=== PATIENT | male | born 1975 | race American Indian/Alaskan Native ===

== ENCOUNTER 2020-03-21 07:37 | Emergency (ER) | payer BC ==
[2020-03-21 07:50] VITALS: BP 132/64
[2020-03-21] MEDS ORDERED: IBUPROFEN 600 MG TAB PO ONE (09:12)
--- NOTE | 2020-03-21 09:40 | Emergency Department Report ---
ED Back Pain/Injury HPI - General Chief Complaint: Back Pain/Injury Stated Complaint: ACCIDENT AT WORK Time Seen by Provider: 03/21/20 09:01 Source: patient Limitations: No Limitations - History of Present Illness Initial Comments: Patient is a 44-year-old male presents emergency room with complaints of low back pain that occurred just prior to arrival. Patient states that he had a slip and fall. He states he believes he fell over some cables. He states he has been having lower back pain. He denies any loss of consciousness, numbness, weakness, bowel or bladder incontinence, vomiting, vision changes. He does not report any chest pain, dizziness, shortness of breath prior to the fall, he states that he accidentally slipped and fell. No past medical history. No all ergies to medications. He is ambulatory and states that he drove himself to the emergency department. - Related Data Previous Rx's Medication Instructions Recorded Last Taken Type Naproxen [EC-Naprosyn] 500 mg PO BID PRN #14 tablet. 03/21/20 Unknown Rx methOCARBAMOL [Robaxin TAB] 500 mg PO BID PRN #14 tab 03/21/20 Unknown Rx Allergies Allergy/AdvReac Type Severity Reaction Status Date / Time No Known Allergies Allergy Verified 03/21/20 09:16 ED Review of Systems ROS: Stated complaint: ACCIDENT AT WORK Other details as noted in HPI Comment: All other systems reviewed and negative ED Past Medical Hx - Past Medical History Previous Medical History?: No - Surgical History Past Surgical History?: Yes Additional Surgical History: ACHSILES - Social History Smoking Status: Never Smoker Substance Use Type: None - Medications Home Medications: Home Medications Medication Instructions Recorded Confirmed Last Taken Type Naproxen [EC-Naprosyn] 500 mg PO BID PRN #14 tablet. 03/21/20 Unknown Rx methOCARBAMOL [Robaxin TAB] 500 mg PO BID PRN #14 tab 03/21/20 Unknown Rx ED Physical Exam - General Limitations: No Limitations General appearance: alert, in no apparent distress - Head Head exam: Present: atraumatic, normocephalic - Eye Eye exam: Present: normal appearance - ENT ENT exam: Present: mucous membranes moist - Neck Neck exam: Present: normal inspection, full ROM. Absent: tenderness - Respiratory Respiratory exam: Present: normal lung sounds bilaterally, other (no ecchymosis, no crepitus, no deformity, no clavicular ttp). Absent: respiratory distress, wheezes, rales, rhonchi, stridor, chest wall tenderness, accessory muscle use, decreased breath sounds, prolonged expiratory - Cardiovascular Cardiovascular Exam: Present: regular rate, normal rhythm, normal heart sounds. Absent: systolic murmur, diastolic murmur, rubs, gallop - Extremities Exam Extremities exam: Present: normal inspection, full ROM, normal capillary refill. Absent: tenderness, pedal edema, joint swelling, calf tenderness - Back Exam Back exam: Present: normal inspection, full ROM, paraspinal tenderness (bilateral lumbar paraspinal muscular ttp, no midline C-spine, T-spine, or L- spine ttp, no step offs, no deformities). Absent: vertebral tenderness - Neurological Exam Neurological exam: Present: alert, oriented X3, CN II-XII intact, normal gait. Absent: motor sensory deficit - Psychiatric Psychiatric exam: Present: normal affect, normal mood - Skin Skin exam: Present: warm, dry, intact ED Course Vital Signs 03/21/20 07:44 Temperature 98.1 F Pulse Rate 65 Respiratory 18 Rate Blood Pressure 132/64 O2 Sat by Pulse 95 Oximetry ED Medical Decision Making - Radiology Data Radiology results: report reviewed Ordering Physician: NALLELY HU Date of Service: 03/21/20 Procedure(s): XR spine lumbosacral 2-3V Accession Number(s): [id number] cc: NALLELY HU Fluoro Time In Minutes: XR spine lumbosacral 2-3V INDICATION / CLINICAL INFORMATION: fall, low back pain. COMPARISON: None available. FINDINGS: VERTEBRAE: No acute fracture. Minimal degenerative retrolisthesis of L4 on L5. DISC SPACES / FACET JOINTS:Moderate disc space height loss at L5-S1, mild at L4- L5. There is mild to moderate lower lumbar facet arthropathy. PARASPINAL SOFT TISSUES:No significant abnormality. ADDITIONAL FINDINGS: None. IMPRESSION: Mild/moderate lower lumbar spondylosis. No acute process identified. Signer Name: Lizeth Connor MD Signed: 03/21/2020 9:37 AM Workstation Name: [id number] Transcribed By: COLLIN Dictated By: LIZETH ARELLANO MD Electronically Authenticated By: LIZETH ARELLANO MD Signed Date/Time: 03/21/20936 DD/ 5 TD/TT: - Medical Decision Making Patient is a 44-year-old male presents emergency room with complaints of low back pain that occurred just prior to arrival. Patient states that he had a slip and fall. He states he believes he fell over some cables. He states he has been having lower back pain. He denies any loss of consciousness, numbness, weakness, bowel or bladder incontinence, vomiting, vision changes. He does not report any chest pain, dizziness, shortness of breath prior to the fall, he states that he accidentally slipped and fell. No past medical history. No allergies to medications. He is ambulatory and states that he drove himself to the emergency department. vss. on exam: bilateral lumbar paraspinal muscular ttp, no midline C-spine, T-spine, or L-spine ttp, no step offs, no deformities, no focal neuro deficits. Patient is ambulatory without difficulty. X-ray lumbar spine: Mild/moderate lower lumbar spondylosis. No acute process identified. Symptoms likely related to muscle strain. Discussed all results with patient and answered questions. Patient given ibuprofen while in the emergency department. Patient given prescription for naproxen and Robaxin. Advised patient please take medication as prescribed as needed. Do not drive or operate heavy machinery while taking muscle relaxer Robaxin. May use ice pack, heating pad, rest, Epsom salt bath. Follow-up with your primary care doctor for reexamination. Return to emergency room for any new or worsening symptoms. - Differential Diagnosis Strain, sprain, fracture, dislocation, DDD, sciatica, bulging disc Critical care attestation.: If time is entered above; I have spent that time in minutes in the direct care of this critically ill patient, excluding procedure time. ED Disposition Clinical Impression: Lumbar spondylosis Acute lumbar myofascial strain Qualifiers: Encounter type: initial encounter Qualified Code(s): S39.012A - Strain of muscle, fascia and tendon of lower back, initial encounter Disposition: TO HOME OR SELFCARE Is pt being admited?: No Does the pt Need Aspirin: No Condition: Stable Instructions: Lumbar Strain Additional Instructions: please take medication as prescribed as needed. Do not drive or operate heavy machinery while taking muscle relaxer Robaxin. May use ice pack, heating pad, rest, Epsom salt bath. Follow-up with your primary care doctor for reexamination. Return to emergency room for any new or worsening symptoms. Prescriptions: Naproxen [EC-Naprosyn] 500 mg PO BID PRN #14 tablet. PRN Reason: pain methOCARBAMOL [Robaxin TAB] 500 mg PO BID PRN #14 tab PRN Reason: pain Referrals: STELLA SCHRADER MD [Staff Physician] - 2-3 Days [facility] [Provider Group] - 2-3 Days Time of Disposition: 09:48 Print Language: [id number]
== END 2020-03-21 10:07 | disposition home or self-care (01) ==
LOC: ED 07:37
DX: S39.012A Strain of muscle, fascia and tendon of lower back, initial encounter (principal); M47.896 Other spondylosis, lumbar region; W01.0XXA Fall on same level from slipping, tripping and stumbling without subsequent striking against object, initial encounter; Y93.89 Activity, other specified; Y92.89 Other specified places as the place of occurrence of the external cause; Y99.8 Other external cause status
CPT/HCPCS: 72100